=== PATIENT | male | born 1935 | race Caucasian/White ===

== ENCOUNTER 2016-09-20 02:24 | Emergency (ER) | payer MEDICARE, OTHER ==
--- NOTE | 2016-09-20 02:53 | ER Document Report ---
ED General - General Stated Complaint: PACE MAKER ISSUE Time Seen by Provider: 09/20/16 02:40 Notes: Patient is a 81-year-old male who presents with complaint of being shocked several times by his defibrillator. Him and his and daughter are here visiting from [place]. He was lying in bed and jolted several times as this being shocked. He urinated on himself. He eventually woke up after the shocks. Patient says he does not remember the shocks himself. Patient has a long cardiac history. He had coronary four-vessel bypass approximately 20 years ago. He has had with a think is one stent as well. He has had no stents or bypass in the last 10 years. He does have history of heart arrhythmia. They are unsure if the previous heart arrhythmia with atrial fibrillation or V. tach. 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 This is why he has the pacemaker/defibrillator. They said that he did have one episode on the way down from [place] where they think he might of been shocked. They months did come check him out and they decided to continue on the trip. The current pacemaker was placed in October of last year. This is the first time he has had any shocks by the pacemaker since it was placed in October. He currently has no pain. He does admit he felt slightly fatigued over the last week. No difficulty breathing. Patient does take Coumadin. - Related Data Allergies/Adverse Reactions: No Known Allergies Allergy (Unverified 09/20/16 03:45) Home Medications: Current Home Medications Allopurinol [Zyloprim 100 mg Tablet] 50 mg PO DAILY 09/20/16 [History] Cholecalciferol (Vitamin D3) [Vitamin D3 1000 Unit Tablet] 1 tab PO DAILY [History] Docusate Sodium [Colace 100 mg Capsule] 1 tab PO BID 09/20/16 [History] Iron 65 mg PO DAILY 09/20/16 [History] Metolazone 2.5 mg PO PRN PRN 09/20/16 [History] Potassium Chloride 40 meq PO DAILY 09/20/16 [History] Rosuvastatin Calcium [Crestor 20 mg Tablet] 20 mg PO DAILY 09/20/16 [History] Spironolactone 25 mg PO PRN PRN 09/20/16 [History] Tamsulosin HCl 1 tab PO DAILY 09/20/16 [History] Valacyclovir HCl [Valacyclovir] 500 mg PO ASDIR 09/20/16 [History] Vitamin B Complex [Super B Complex] 1 cap PO DAILY 09/20/16 [History] Warfarin Sodium [Coumadin] 2 mg PO DAILY 09/20/16 [History] Past Medical History - Social History Smoking Status: Unknown if Ever Smoked Frequency of alcohol use: None Drug Abuse: None Family History: Reviewed & Not Pertinent Review of Systems - Review of Systems Notes: My Normal Review Basic REVIEW OF SYSTEMS: CONSTITUTIONAL : Denies fever, chills, or sweats. Denies recent illness. EENT: Denies eye, ear, throat, or mouth pain or symptoms. Denies nasal or sinus congestion. CARDIOVASCULAR: Denies chest pain. Defibrillator shock. RESPIRATORY: Denies cough, cold, or chest congestion. Denies shortness of breath, difficulty breathing, or wheezing. GASTROINTESTINAL: Denies abdominal pain. Denies nausea, vomiting, or diarrhea. Denies constipation. Last BM: MUSCULOSKELETAL: Denies neck or back pain or joint pain or swelling. SKIN: Denies rash or skin lesions. NEUROLOGICAL: Denies altered mental status or loss of consciousness. Denies headache. Denies weakness or paralysis or loss of use of either side. Denies problems with gait or speech. Denies sensory or motor loss. ALL OTHER SYSTEMS REVIEWED AND NEGATIVE. Physical Exam - Vital signs Vitals: Temp Resp BP Pulse Ox 97.4 F 14 111/77 97 09/20/16 02:26 09/20/16 02:26 09/20/16 02:26 09/20/16 02:26 - Notes Notes: General Appearance: Well nourished, alert, cooperative, no acute distress, no obvious discomfort. Well appearing. Vitals: reviewed, See vital signs table. Head: no swelling or tenderness to the head Eyes: PERRL, EOMI, Conjuctiva clear Mouth: No decreasd moisture Neck: Supple, no neck tenderness, No thyromegaly Lungs: No wheezing, No rales, No rhonci, No accessory muscle use, good air exchange bilaterally. Heart: Normal rate, Regular rythm, No murmur, no rub Abdomen: Normal BS, soft, No rigidity, No abdominal tenderness, No guarding, no rebound, no abdominal masses, no organomegaly Extremities: strength 5/5 in all extremities, good pulses in all extremities, no swelling or tenderness in the extremities, no edema. Skin: warm, dry, appropriate color, no rash Neuro: speech clear, oriented x 3, normal affect, responds appropriately to questions. Course - Re-evaluation Re-evalutation: 09/20/16 04:[address] 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 He recommends that we transferred to the patient to facility that has potential EP as well as has cardiology that could perform a heart cath as needed in case the patient's troponin is to continue to trend upward. He also recommends having an official [employer] rep interrogate the device so that they can determine whether or not patient had true V. tach with this was atrial fibrillation that was shocked several times. I did speak to the family and they prefer [facility] being that the do have a second home in [place]. I am awaiting for a call back from [facility]. Patient continues to remain chest pain-free and has no further complaints at this time. 09/20/16 04:28 To speak with the transfer center. This is Dr. Pedrito White is accepted the patient [facility]. They will call us back with a bed assignment. Patient continues to remain asymptomatic at this time - Vital Signs Vital signs: Temp Pulse Resp BP Pulse Ox 97.4 F 15 108/71 98 09/20/16 02:26 09/20/16 06:23 09/20/16 06:23 09/20/16 06:23 - Laboratory Result Diagrams: 09/20/16 02:32 09/20/16 02:32 Laboratory results interpreted by me: 09/20/16 09/20/16 09/20/16 02:32 02:32 02:32 RDW 17.6 H Plt Count 101 L PT 31.4 H Potassium 3.2 L Chloride 96 L Carbon Dioxide 32 H BUN 33 H Creatinine 1.61 H Est GFR ( Amer) 50 L Est GFR (Non-Af Amer) 41 L Glucose 124 H Magnesium 2.7 H Total Bilirubin 2.3 H Direct Bilirubin 1.0 H Alkaline Phosphatase 150 H Creatine Kinase 49 L - EKG Interpretation by Me Additional EKG results interpreted by me: 09/20/16 02:41 EKG is reviewed and interpreted by me. EKG shows a ventricular paced rhythm with a rate of [address] segment changes. All ST segment changes are consistent with paced rhythm. QRS duration and QT intervals are prolonged. No old EKG available for comparison. 09/20/16 04:00 EKG #2 is reviewed and interpreted by me. EKG shows paced rhythm with rate of [address] segment changes. QRS duration QT intervals are prolonged. - Transfer of Care Notes: 09/20/16 06:29 We are currently awaiting transfer to [facility]. Patient has been accepted. On reevaluation the patient continues to be asymptomatic at this time with normal vital signs. We will continue to monitor the patient until transfer. Dictation of this chart was performed using voice recognition software; therefore, there may be some unintended grammatical errors. Discharge - Discharge Clinical Impression: Implantable cardioverter-defibrillator (ICD) discharge, Elevated troponin level Condition: Stable Disposition: [facility]
[2016-09-20 03:04] LABS: ABSOLUTE LYMPHOCYTES (AUTO) 0.7 10^3/uL (0.5-4.7); ABSOLUTE MONOCYTES (AUTO) 0.5 10^3/uL (0.1-1.4); ABSOLUTE NEUT (AUTO) 3.3 10^3/uL (1.7-8.2); BASOPHILS % (AUTO) 0.5 % (0-2); HEMATOCRIT 42.6 % (37.9-51.0); HEMOGLOBIN 14.2 g/dL (13.5-17.0); LYMPHOCYTES % (AUTO) 16.1 % (13-45); MEAN CORPUSCULAR HEMOGLOBIN 32.3 pg (27.0-33.4); MEAN CORPUSCULAR HGB CONC 33.2 g/dL (32.0-36.0); MEAN CORPUSCULAR VOLUME 97 fl (80-97); MONOCYTES % (AUTO) 10.1 % (3-13); RED BLOOD COUNT 4.39 10^6/uL (4.35-5.55); RED CELL DISTRIBUTION WIDTH 17.6 % (11.5-14.0); SEGMENTED NEUTROPHILS % (AUTO) 72.3 % (42-78); WHITE BLOOD COUNT 4.6 10^3/uL (4.0-10.5)
[2016-09-20 03:09] LABS: ALANINE AMINOTRANSFERASE 37 U/L (21-72); ALBUMIN 4.3 g/dL (3.5-5.0); ALKALINE PHOSPHATASE 150 U/L (38-126); ANION GAP 12 (5-19); ASPARTATE AMINO TRANSFERASE 34 U/L (17-59); BILIRUBIN,TOTAL 2.3 mg/dL (0.2-1.3); BLOOD UREA NITROGEN 33 mg/dL (7-20); CALCIUM 9.8 mg/dL (8.4-10.2); CARBON DIOXIDE 32 mmol/L (22-30); CHLORIDE 96 mmol/L (98-107); CREATINE KINASE 49 U/L (55-170); CREATININE RESULT 1.61 mg/dL (0.52-1.25); GLUCOSE 124 mg/dL (75-110); MAGNESIUM 2.7 mg/dL (1.6-2.3); POTASSIUM 3.2 mmol/L (3.6-5.0); SODIUM 140.3 mmol/L (137-145); TOTAL PROTEIN 8.1 g/dL (6.3-8.2)
[2016-09-20 03:20] LABS: CREATINE KINASE MB 1.37 ng/mL (<4.55)
[2016-09-20 03:25] LABS: PROTHROMBIN TIME 31.4 SEC (11.4-15.4)
[2016-09-20 03:29] LABS: TROPONIN I 0.102 ng/mL
[2016-09-20] MEDS ORDERED: POTASSIUM CHLORIDE 10 MEQ TABLET.SA PO ONE (03:35)
[2016-09-20 09:11] VITALS: BP 105/72
--- NOTE | 2016-09-20 17:06 | EKG REPORT ---
SEVERITY:- ABNORMAL ECG - VENTRICULAR-PACED RHYTHM : Confirmed by: Selena De Guzman MD 20-Sep-2016 17:05:41
--- NOTE | 2016-09-20 17:06 | EKG REPORT ---
SEVERITY:- ABNORMAL ECG - VENTRICULAR-PACED RHYTHM : Confirmed by: Selena De Guzman MD 20-Sep-2016 17:05:47
== END 2016-09-20 09:30 | disposition short-term general hospital (02) ==
LOC: ER 02:24
DX: T82.9XXA Unspecified complication of cardiac and vascular prosthetic device, implant and graft, initial encounter (principal); Z79.01 Long term (current) use of anticoagulants; Z79.899 Other long term (current) drug therapy
CPT/HCPCS: 93005; 99285; 36415; 82553; 82550; 83735; 85025; 85610; 80053; 84484; 71010; 93010; A9270